=== PATIENT | female | born 1980 | race Caucasian/White ===

== ENCOUNTER → 2019-07-12 13:51 | Outpatient (CLI) | payer OTHER, SELFPAY ==
--- NOTE | 2019-07-12 | DI.MRI.S_ITS ---
PROCEDURE: MR KNEE LT WO CON INDICATIONS: Pain in left knee TECHNIQUE: Noncontrast sagittal PD fast spin echo and T2 fast spin echo with fat saturation, sagittal 3-D FLASH with fat saturation; coronal T1 spin echo and PD fast spin echo with fat saturation, and axial PD fast spin echo with fat saturation through the knee. COMPARISON: None. FINDINGS: Image quality: Diagnostic. Bones and joint: There is no acute fracture or dislocation. However, there is marrow edema evident involving the inferior margin of the patella. No suspicious osseous lesions are evident. There is a small knee joint effusion with an associated moderate-sized Hood's cyst. Irregularity of the hyaline articular cartilage within the patellofemoral compartment is present. There may be areas of cartilaginous fissuring or small defects involving the lateral patellar facet. Marrow edema involving the patella is present. Heterogeneity of the hyaline articular cartilage is noted within the medial tibiofemoral compartment without a definite full-thickness cartilaginous defect appreciated. Cruciate ligaments: The anterior and posterior cruciate ligaments are intact. Menisci: No displaced tears of the medial and lateral menisci are evident. However, there is increased signal identified in a linear/horizontal fashion along the medial meniscus that is predominantly seen extending through the anterior horn and body that is suspicious for a horizontal tear without articular surface extension. The posterior root ligaments are intact. Medial structures: The medial collateral ligament is intact. The semimembranosus tendon insertion is intact. The imaged portions of the pes anserinus tendons are unremarkable. No significant fluid is contained within the pes anserinus bursa. Lateral structures: The popliteal tendon is intact. The lateral collateral ligament proper (fibular collateral ligament) and the proximal tibiofibular ligaments are intact. The distal aspect of the biceps femoris tendon and the iliotibial band are intact. Anterior structures: The quadriceps and patellar tendons are intact. Mild increased signal involving the proximal aspect of the patellar tendon is identified. This is slightly more prominent along the lateral margin of the proximal patellar tendon, which is noted to extend over the anterior aspect of the lateral femoral condyle. There is mild edema within the prepatellar soft tissues. There is moderate edema evident within the superolateral aspect of the infrapatellar fat pad. IMPRESSION: 1. Early patellofemoral chondromalacia. Patellar marrow edema probably is related to chondromalacia. However, a bone contusion is difficult to exclude. There is no fracture. 2. Mild to proximal patellar tendinopathy with lateral extension of the patellar tendon over the anterior aspect of the lateral femoral condyle. Please correlate clinically for possible lateral femoral condyle-patellar tendon friction syndrome. 3. Nondisplaced horizontal tear involving the medial meniscus without articular surface extension. Dictated by: Mio Lima M.D. on 07/12/2019 at 15:06 Approved by: Mio Lima M.D. on 07/12/2019 at 15:10
== END ==
PROVIDERS: Visit Provider General Practice
DX: M25.562 Pain in left knee (principal); M22.42 Chondromalacia patellae, left knee; S83.242A Other tear of medial meniscus, current injury, left knee, initial encounter
CPT/HCPCS: 73721

== ENCOUNTER → 2023-10-20 15:48 | Outpatient (CLI) | payer OTHER, SELFPAY ==
--- NOTE | 2023-10-20 | DI.MRI.S_ITS ---
PROCEDURE: MR PELVIS WO/W CON INDICATIONS: Pelvic and perineal pain TECHNIQUE: Coronal HASTE, sagittal breath-hold T2 FSE; axial T1 FSE with and without fat saturation through the pelvis. Optional long- and short-axis uterine nonbreath-hold T2 FSE through the uterus. Sagittal or axial dynamic VIBE during administration of contrast. Post-contrast axial or coronal VIBE/2-D FLASH with fat saturation from the iliac crests to the symphysis. Optional diffusion weighted imaging and ADC may be performed. COMPARISON: None. FINDINGS: Image quality: Diagnostic Lower abdomen: No bowel obstruction. A small amount pelvic fluid is probably physiologic. Bladder: Unremarkable Reproductive organs: The endometrium measures 6-7 millimeters, within normal limits for age. The junctional zone is nonthickened. The cervix appears unremarkable. Follicles are seen in the ovaries, which appear nonenlarged. Possible mild fluid is seen in or around the right fallopian tube. Suspected scar, with susceptibility artifact. On post gadolinium images, there are mildly prominent pelvic veins. Suspected left corpus luteum cyst. On pre gadolinium gradient echo images, Rectum: Unremarkable. Colonic diverticula are present. Vessels and lymph nodes: No aneurysmal vessel or pathologic lymph nodes by size criteria is identified. Pelvic wall: Unremarkable Bones: No acute or suspicious osseous finding. IMPRESSION: Nonenlarged ovaries. Unremarkable appearance of the uterus, aside from a suspected scar with susceptibility artifact representing postsurgical changes. No evidence of active deep pelvic endometriosis deposits. Clinical followup is recommended. If there is new or worsening clinical concern, reimaging could be obtained, typically ultrasound initially. Dictated by: Andres Verdin M.D. on 10/21/2023 at 9:14 Approved by: Andres Verdin M.D. on 10/21/2023 at 9:22
== END ==
DX: R10.2 Pelvic and perineal pain (principal); K57.90 Diverticulosis of intestine, part unspecified, without perforation or abscess without bleeding
CPT/HCPCS: 72197; A9579